=== PATIENT | male | born 1960 | race Caucasian/White ===

== ENCOUNTER → 2016-07-18 | Outpatient (CLI) | payer BC ==
[~2016-07-18] MED LIST: ASPI-1158 PO; COR3 PO; CYAN10009 PO; FERR-63 PO; LOSARTAN PO; PRAS10TA6 PO; ROSU40TA PO; VITAMIN E PO
[2016-07-18 07:37] LABS: CLARITY URINE CLEAR (CLEAR); COLOR URINE YELLOW (YELLOW); GLUCOSE URINE NEGATIVE (NEGATIVE); KETONES URINE NEGATIVE (NEGATIVE); LEUKOCYTE ESTERASE URINE NEGATIVE (NEGATIVE); NITRITE URINE NEGATIVE (NEGATIVE); OCCULT BLOOD URINE NEGATIVE (NEGATIVE); PH URINE 5.5 (4.5-8.0); PROTEIN URINE NEGATIVE (NEGATIVE); SPECIFIC GRAVITY URINE 1.016 (1.005-1.030); UROBILINOGEN URINE 0.2 E.U./dL (0.2-1.0)
[2016-07-18 08:06] LABS: BASOPHILS % 0.7 % (0.0-2.0); EOSINOPHILS % 1.8 % (0.0-5.0); HEMOGLOBIN. 13.5 g/dL (14.0-18.0); LYMPHOCYTES % 36.2 % (20.0-50.0); MEAN CORPUSCULAR HEMOGLOBIN 31.4 pg (28.0-32.0); MEAN CORPUSCULAR VOLUME 90.6 fL (80.0-94.0); MEAN PLATELET VOLUME 9.3 fl (7.4-10.4); MONOCYTES % 8.4 % (2.0-8.0); NEUTROPHILS % 52.9 % (40.0-76.0); PLATELET 224 x1000/uL (130-400); RED BLOOD CELL COUNT 4.31 mill/uL (4.7-6.1); RED CELL DISTRIBUTION WIDTH 12.8 % (11.6-14.6)
[2016-07-18 09:37] LABS: CARBON DIOXIDE 26 mEq/L (21-32); CHLORIDE 106 mEq/L (98-107); T4 FREE 1.08 ng/dL (0.76-1.46)
[2016-07-18 09:42] LABS: HDL CHOLESTEROL 49 mg/dL (40-59); LDL CHOLESTEROL 76 mg/dL (5-100)
[2016-07-19 13:11] LABS: *CREATININE RANDOM URINE 96.2 mg/dL (Not Estab.); MICROALBUMIN RANDOM URINE <3.0 ug/mL (Not Estab.); MICROALBUMIN/CREATININE RATIO <3.1 mg/g creat (0.0-30.0)
== END | disposition home or self-care (01) ==
LOC: LAB 07:03
PROVIDERS: ATTEND Internal Medicine Endocrinology, Diabetes & Metabolism
DX: I10 Essential (primary) hypertension (principal); F32.9 Major depressive disorder, single episode, unspecified; E55.9 Vitamin D deficiency, unspecified; E78.5 Hyperlipidemia, unspecified
CPT/HCPCS: 36415; 80053; 80061; 81003; 82043; 82306; 82570; 83036; 84439; 84443; 84550; 85025; 87086

== ENCOUNTER 2016-09-06 13:36 | Emergency (ER) | payer BC ==
[~2016-09-06] VITALS: Ht 162.6 cm; Wt 77.0 kg
[2016-09-06] MEDS ORDERED: METHYLPREDNISOLONE SOD SUCC 125 MG/2 ML VIAL IV ONE (14:15)
[2016-09-06] MEDS ORDERED: DIPHENHYDRAMINE 50MG/ML VIAL IV ONE (14:15)
[2016-09-06] MEDS ORDERED: FAMOTIDINE 20MG/2ML VIAL IV ONE (14:15)
[2016-09-06 14:32] LABS: BASOPHILS % 0.1 % (0.0-2.0); EOSINOPHILS % 0.8 % (0.0-5.0); HEMATOCRIT. 37.6 % (42.0-52.0); HEMOGLOBIN. 13.5 g/dL (14.0-18.0); LYMPHOCYTES % 14.9 % (20.0-50.0); MEAN CORPUSCULAR HEMOGLOBIN 31.7 pg (28.0-32.0); MEAN CORPUSCULAR VOLUME 88.2 fL (80.0-94.0); MEAN PLATELET VOLUME 8.7 fl (7.4-10.4); MONOCYTES % 5.6 % (2.0-8.0); NEUTROPHILS % 78.6 % (40.0-76.0); PLATELET 197 x1000/uL (130-400); RED BLOOD CELL COUNT 4.27 mill/uL (4.7-6.1); RED CELL DISTRIBUTION WIDTH 12.6 % (11.6-14.6)
[2016-09-06 14:41] LABS: PARTIAL THROMBOPLASTIN TIME 25.4 sec (24.0-34.0); PROTHROMBIN TIME 10.6 sec
[2016-09-06 14:49] LABS: CARBON DIOXIDE 26 mEq/L (21-32); CHLORIDE 104 mEq/L (98-107); CREATINE KINASE 262 IU/L (39-308); TROPONIN I < 0.02 ng/mL (0.00-0.04)
[2016-09-06 15:52] LABS: CLARITY URINE CLEAR (CLEAR); COLOR URINE YELLOW (YELLOW); GLUCOSE URINE NEGATIVE (NEGATIVE); KETONES URINE NEGATIVE (NEGATIVE); LEUKOCYTE ESTERASE URINE NEGATIVE (NEGATIVE); NITRITE URINE NEGATIVE (NEGATIVE); OCCULT BLOOD URINE NEGATIVE (NEGATIVE); PROTEIN URINE NEGATIVE (NEGATIVE); SPECIFIC GRAVITY URINE 1.011 (1.005-1.030)
[2016-09-06 16:09] VITALS: BP 138/74
== END 2016-09-06 16:13 | disposition home or self-care (01) ==
LOC: ER 13:36
DX: T78.40XA Allergy, unspecified, initial encounter (principal); L50.0 Allergic urticaria; M79.89 Other specified soft tissue disorders; I25.10 Atherosclerotic heart disease of native coronary artery without angina pectoris; I10 Essential (primary) hypertension; E78.00 Pure hypercholesterolemia, unspecified; I25.2 Old myocardial infarction; Z79.82 Long term (current) use of aspirin; Z87.891 Personal history of nicotine dependence; Z95.2 Presence of prosthetic heart valve; Z91.040 Latex allergy status
CPT/HCPCS: 36415; 80053; 81003; 82550; 83880; 84484; 85025; 85610; 85730; 93005; 96374; 96375; 99285; J1200; J2930; J3490

== ENCOUNTER → 2016-09-16 | Outpatient (CLI) | payer BC | END | disposition home or self-care (01) | LOC: US 08:27 | PROVIDERS: ATTEND Internal Medicine Endocrinology, Diabetes & Metabolism | DX: M79.601 Pain in right arm (principal); R60.9 Edema, unspecified | CPT/HCPCS: 76881 ==

== ENCOUNTER → 2016-10-15 | Outpatient (CLI) | payer BC | END | disposition home or self-care (01) | LOC: MRI 07:49 | PROVIDERS: ATTEND Internal Medicine | DX: M25.521 Pain in right elbow (principal) | CPT/HCPCS: 73220 ==

== ENCOUNTER → 2017-04-04 | Outpatient (CLI) | payer BC | END | disposition home or self-care (01) | LOC: RAD 17:27 | PROVIDERS: ATTEND Internal Medicine Endocrinology, Diabetes & Metabolism | DX: J40 Bronchitis, not specified as acute or chronic (principal) | CPT/HCPCS: 71046 ==

== ENCOUNTER → 2017-07-29 | Outpatient (CLI) | payer BC ==
[2017-07-29 08:26] LABS: BASOPHILS % 0.9 % (0.0-2.0); EOSINOPHILS % 2.5 % (0.0-5.0); HEMATOCRIT. 40.2 % (42.0-52.0); HEMOGLOBIN. 14.1 g/dL (14.0-18.0); LYMPHOCYTES % 35.8 % (20.0-50.0); MEAN CORPUSCULAR HEMOGLOBIN 31.6 pg (28.0-32.0); MEAN CORPUSCULAR VOLUME 89.8 fL (80.0-94.0); MEAN PLATELET VOLUME 8.7 fl (7.4-10.4); MONOCYTES % 7.7 % (2.0-8.0); NEUTROPHILS % 53.1 % (40.0-76.0); PLATELET 250 x1000/uL (130-400); RED BLOOD CELL COUNT 4.47 mill/uL (4.7-6.1); RED CELL DISTRIBUTION WIDTH 12.9 % (11.6-14.6)
[2017-07-29 08:39] LABS: CHLORIDE 107 mEq/L (98-107)
[2017-07-29 08:49] LABS: HDL CHOLESTEROL 51 mg/dL (40-59); T4 FREE 1.02 ng/dL (0.76-1.46)
[2017-07-29 09:00] LABS: LDL CHOLESTEROL 83 mg/dL (5-100)
== END | disposition home or self-care (01) ==
LOC: LAB 07:48
PROVIDERS: ATTEND Internal Medicine
DX: M79.605 Pain in left leg (principal); E78.00 Pure hypercholesterolemia, unspecified; R73.9 Hyperglycemia, unspecified; F41.9 Anxiety disorder, unspecified
CPT/HCPCS: 36415; 80053; 80061; 83036; 84439; 84443; 85025; 93971

== ENCOUNTER → 2017-08-12 | Outpatient (CLI) | payer BC | END | disposition home or self-care (01) | LOC: MRI 07:13 | PROVIDERS: ATTEND Internal Medicine | DX: M25.562 Pain in left knee (principal) | CPT/HCPCS: 73721 ==

== ENCOUNTER → 2017-08-29 | Outpatient (CLI) | payer BC | END | disposition home or self-care (01) | LOC: MRI 07:34 | PROVIDERS: ATTEND Psychiatry & Neurology Neurology | DX: M48.061 Spinal stenosis, lumbar region without neurogenic claudication (principal); G95.29 Other cord compression | CPT/HCPCS: 72148 ==

== ENCOUNTER → 2017-10-02 | Outpatient (CLI) | payer BC ==
[~2017-10-02] MED LIST changes: +REGADENOSON 0.4 MG/5 ML IV ONE
== END | disposition home or self-care (01) ==
LOC: NM 07:25
PROVIDERS: ATTEND Specialist
DX: I10 Essential (primary) hypertension (principal); I25.118 Atherosclerotic heart disease of native coronary artery with other forms of angina pectoris; E78.2 Mixed hyperlipidemia; J45.909 Unspecified asthma, uncomplicated
CPT/HCPCS: 78452; 93017; 93306; A9500; J2785

== ENCOUNTER → 2017-11-21 | Outpatient (CLI) | payer BC ==
[~2017-11-21] MED LIST changes: -REGADENOSON 0.4 MG/5 ML IV ONE
[2017-11-21 08:08] LABS: BASOPHILS % 0.9 % (0.0-2.0); EOSINOPHILS % 2.3 % (0.0-5.0); HEMATOCRIT. 40.5 % (42.0-52.0); HEMOGLOBIN. 14.1 g/dL (14.0-18.0); LYMPHOCYTES % 38.6 % (20.0-50.0); MEAN CORPUSCULAR HEMOGLOBIN 31.5 pg (28.0-32.0); MEAN CORPUSCULAR VOLUME 90.6 fL (80.0-94.0); MEAN PLATELET VOLUME 8.9 fl (7.4-10.4); NEUTROPHILS % 50.2 % (40.0-76.0); PLATELET 216 x1000/uL (130-400); RED BLOOD CELL COUNT 4.47 mill/uL (4.7-6.1); RED CELL DISTRIBUTION WIDTH 13.1 % (11.6-14.6)
[2017-11-21 09:01] LABS: CHLORIDE 105 mEq/L (98-107)
[2017-11-21 09:19] LABS: HDL CHOLESTEROL 57 mg/dL (40-59); LDL CHOLESTEROL 82 mg/dL (5-100); T4 FREE 0.99 ng/dL (0.76-1.46)
[2017-11-22 08:15] LABS: PROLACTIN 15.8 ng/mL (4.0-15.2); VITAMIN D 25-OH 53.1 ng/mL (30.0-100.0)
== END | disposition home or self-care (01) ==
LOC: LAB 07:25
PROVIDERS: ATTEND Internal Medicine Endocrinology, Diabetes & Metabolism
DX: M17.12 Unilateral primary osteoarthritis, left knee (principal); R73.9 Hyperglycemia, unspecified; E66.9 Obesity, unspecified; Z79.899 Other long term (current) drug therapy
CPT/HCPCS: 36415; 80061; 82306; 83036; 84146; 84439; 84443; 84550

== ENCOUNTER → 2018-06-12 | Outpatient (CLI) | payer BC ==
[2018-06-12 07:56] LABS: CLARITY URINE CLEAR (CLEAR); COLOR URINE YELLOW (YELLOW); KETONES URINE NEGATIVE (NEGATIVE); LEUKOCYTE ESTERASE URINE NEGATIVE (NEGATIVE); NITRITE URINE NEGATIVE (NEGATIVE); OCCULT BLOOD URINE NEGATIVE (NEGATIVE); PROTEIN URINE NEGATIVE (NEGATIVE); SPECIFIC GRAVITY URINE 1.011 (1.005-1.030); UROBILINOGEN URINE 0.2 E.U./dL (0.2-1.0)
[2018-06-12 08:18] LABS: BASOPHILS % 0.6 % (0.0-2.0); EOSINOPHILS % 1.5 % (0.0-5.0); HEMOGLOBIN. 13.7 g/dL (14.0-18.0); LYMPHOCYTES % 43.6 % (20.0-50.0); MEAN CORPUSCULAR HEMOGLOBIN 31.4 pg (28.0-32.0); MEAN CORPUSCULAR VOLUME 89.7 fL (80.0-94.0); MEAN PLATELET VOLUME 8.8 fl (7.4-10.4); MONOCYTES % 7.5 % (2.0-8.0); NEUTROPHILS % 46.8 % (40.0-76.0); PLATELET 225 x1000/uL (130-400); RED BLOOD CELL COUNT 4.35 mill/uL (4.7-6.1); RED CELL DISTRIBUTION WIDTH 13.1 % (11.6-14.6)
[2018-06-12 08:54] LABS: T4 FREE 1.19 ng/dL (0.76-1.46)
== END | disposition home or self-care (01) ==
LOC: LAB 07:01
PROVIDERS: ATTEND Internal Medicine Endocrinology, Diabetes & Metabolism
DX: E55.9 Vitamin D deficiency, unspecified (principal); M17.12 Unilateral primary osteoarthritis, left knee; R82.90 Unspecified abnormal findings in urine; R73.9 Hyperglycemia, unspecified
CPT/HCPCS: 36415; 80061; 82306; 83036; 84145; 84439; 84443; 84550

== ENCOUNTER 2018-08-25 00:07 | Inpatient (IN) | payer BC ==
[~2018-08-25] VITALS: Ht 162.6 cm; Wt 83.2 kg
[2018-08-25] MEDS ORDERED: MORPHINE SULFATE 4 MG/ML CPJ (NOT FOR IM USE) IV STA (00:27)
[2018-08-25] MEDS ORDERED: ONDANSETRON HCL 4MG/2ML INJ IV STA (00:27)
[2018-08-25] MEDS ORDERED: ASPIRIN 81MG TABLET PO ONE (00:30)
[2018-08-25 01:03] LABS: BASOPHILS % 0.6 % (0.0-2.0); EOSINOPHILS % 2.5 % (0.0-5.0); HEMOGLOBIN. 13.7 g/dL (14.0-18.0); LYMPHOCYTES % 42.1 % (20.0-50.0); MEAN CORPUSCULAR HEMOGLOBIN 32.1 pg (28.0-32.0); MEAN CORPUSCULAR VOLUME 91.3 fL (80.0-94.0); MEAN PLATELET VOLUME 9.1 fl (7.4-10.4); MONOCYTES % 7.9 % (2.0-8.0); NEUTROPHILS % 46.9 % (40.0-76.0); PLATELET 210 x1000/uL (130-400); RED BLOOD CELL COUNT 4.28 mill/uL (4.7-6.1); RED CELL DISTRIBUTION WIDTH 12.8 % (11.6-14.6)
[2018-08-25 01:06] LABS: CHLORIDE 105 mEq/L (98-107)
[2018-08-25 01:08] LABS: PARTIAL THROMBOPLASTIN TIME 25.2 sec (23.4-31.0); PROTHROMBIN TIME 10.5 sec (9.6-11.0)
[2018-08-25 01:36] LABS: CLARITY URINE CLEAR (CLEAR); COLOR URINE YELLOW (YELLOW); KETONES URINE NEGATIVE (NEGATIVE); LEUKOCYTE ESTERASE URINE NEGATIVE (NEGATIVE); NITRITE URINE NEGATIVE (NEGATIVE); OCCULT BLOOD URINE NEGATIVE (NEGATIVE); PROTEIN URINE NEGATIVE (NEGATIVE); SPECIFIC GRAVITY URINE 1.003 (1.005-1.030); UROBILINOGEN URINE 0.2 E.U./dL (0.2-1.0)
[2018-08-25 02:35] VITALS: BP 132/80
[2018-08-25 03:17] VITALS: BP 132/80
[2018-08-25] MEDS ORDERED: ACETAMINOPHEN 325MG TABLET PO PRN (05:15)
[2018-08-25] MEDS ORDERED: MORPHINE SULFATE 2 MG/ML CPJ (NOT FOR IM USE) IV PRN (05:15)
[2018-08-25] MEDS ORDERED: NITROGLYCERIN 0.4MG TABLET SL SL PRN (05:15)
[2018-08-25 08:42] VITALS: BP 147/81
[2018-08-25 08:50] LABS: CREATINE KINASE 155 IU/L (39-308)
[2018-08-25 08:51] LABS: CREATINE KINASE MB FRACTION 1.1 ng/mL (0.5-3.6)
[2018-08-25] MEDS ORDERED: CLOPIDOGREL 75MG TABLET PO SCH (09:00)
[2018-08-25] MEDS ORDERED: CARVEDILOL 3.125 MG TABLET PO SCH (09:00)
[2018-08-25] MEDS ORDERED: VITAMIN E 1,000 UNIT CAPSULE PO SCH (09:00)
[2018-08-25] MEDS ORDERED: LOSARTAN POTASSIUM 25 MG TABLET PO SCH ×2 (09:00→12:00)
[2018-08-25] MEDS ORDERED: FERROUS SULFATE 325MG TABLET PO SCH (09:00)
[2018-08-25] MEDS ORDERED: ASPIRIN 81MG EC TABLET PO SCH (09:00)
[2018-08-25] MEDS ORDERED: ASCORBIC ACID 500 MG TABLET PO SCH (09:00)
[2018-08-25] MEDS ORDERED: CYANOCOBALAMIN 1000MCG TABLET PO SCH (09:00)
[2018-08-25 10:06] VITALS: BP 153/86
[2018-08-25] MEDS ORDERED: REGADENOSON 0.4 MG/5 ML IV ONE ×2 (11:45→13:24)
[2018-08-25 12:01] VITALS: BP 153/96
[2018-08-25 16:01] VITALS: BP 147/87
== END 2018-08-25 20:00 | disposition home or self-care (01) | DRG 303 ==
LOC: ER 00:07 → 3WST 01:24 → EDBEDREQTM 01:26 → EDBEDREQ 01:26 → ER 01:39 → ENRESERV 01:41
PROVIDERS: ADMIT Internal Medicine Endocrinology, Diabetes & Metabolism; ATTEND Internal Medicine Endocrinology, Diabetes & Metabolism
DX: I25.118 Atherosclerotic heart disease of native coronary artery with other forms of angina pectoris (principal); E22.1 Hyperprolactinemia; E23.0 Hypopituitarism; R07.89 Other chest pain; R73.9 Hyperglycemia, unspecified; E78.00 Pure hypercholesterolemia, unspecified; E78.5 Hyperlipidemia, unspecified; G89.29 Other chronic pain; I10 Essential (primary) hypertension; K80.20 Calculus of gallbladder without cholecystitis without obstruction; M17.0 Bilateral primary osteoarthritis of knee; S46.912A Strain of unspecified muscle, fascia and tendon at shoulder and upper arm level, left arm, initial encounter; X58.XXXA Exposure to other specified factors, initial encounter; M19.019 Primary osteoarthritis, unspecified shoulder; M47.812 Spondylosis without myelopathy or radiculopathy, cervical region; E66.9 Obesity, unspecified; M48.061 Spinal stenosis, lumbar region without neurogenic claudication; E79.0 Hyperuricemia without signs of inflammatory arthritis and tophaceous disease; M48.02 Spinal stenosis, cervical region; M48.07 Spinal stenosis, lumbosacral region; Z82.3 Family history of stroke; Z82.49 Family history of ischemic heart disease and other diseases of the circulatory system; Z83.3 Family history of diabetes mellitus; Z95.1 Presence of aortocoronary bypass graft; Z91.040 Latex allergy status; Z79.82 Long term (current) use of aspirin; Z79.899 Other long term (current) drug therapy; Z83.6 Family history of other diseases of the respiratory system; Z84.89 Family history of other specified conditions; Z68.31 Body mass index [BMI] 31.0-31.9, adult; Y93.89 Activity, other specified; Y92.89 Other specified places as the place of occurrence of the external cause; Y99.8 Other external cause status; I25.2 Old myocardial infarction
CPT/HCPCS: 36415; 71045; 78452; 82550; 82553; 83036; 83880; 84484; 93017; A9500; J2270; J2405; J2785

== ENCOUNTER → 2019-02-12 | Outpatient (CLI) | payer BC ==
[~2019-02-12] MED LIST changes: +CYAN-50 PO; -CYAN10009 PO; -PRAS10TA6 PO; -ROSU40TA PO
== END | disposition home or self-care (01) ==
LOC: RAD 07:36
PROVIDERS: ATTEND Internal Medicine Endocrinology, Diabetes & Metabolism
DX: M25.561 Pain in right knee (principal); M25.562 Pain in left knee
CPT/HCPCS: 73565

== ENCOUNTER → 2019-04-21 | Outpatient (CLI) | payer BC ==
[2019-04-21 08:05] LABS: BASOPHILS % 0.7 % (0.0-2.0); EOSINOPHILS % 2.1 % (0.0-5.0); HEMATOCRIT. 42.4 % (42.0-52.0); HEMOGLOBIN. 14.7 g/dL (14.0-18.0); LYMPHOCYTES % 38.7 % (20.0-50.0); MEAN CORPUSCULAR HEMOGLOBIN 31.5 pg (28.0-32.0); MEAN CORPUSCULAR VOLUME 90.7 fL (80.0-94.0); MEAN PLATELET VOLUME 9.9 fl (7.4-10.4); MONOCYTES % 7.5 % (2.0-8.0); PLATELET 197 x1000/uL (130-400); RED BLOOD CELL COUNT 4.67 mill/uL (4.7-6.1); RED CELL DISTRIBUTION WIDTH 12.7 % (11.6-14.6)
[2019-04-21 08:19] LABS: CHLORIDE 107 mEq/L (98-107)
[2019-04-21 08:28] LABS: HDL CHOLESTEROL 57 mg/dL (40-59); LDL CHOLESTEROL 75 mg/dL (5-100); T4 FREE 0.98 ng/dL (0.76-1.46)
[2019-04-22 09:11] LABS: VITAMIN D 25-OH 58.3 ng/mL (30.0-100.0)
[2019-04-22 13:06] LABS: ANTI-NUCLEAR ANTIBODIES DIRECT Negative (Negative)
== END | disposition home or self-care (01) ==
LOC: LAB 07:07
PROVIDERS: ATTEND Internal Medicine Endocrinology, Diabetes & Metabolism
DX: Z12.5 Encounter for screening for malignant neoplasm of prostate (principal); R73.9 Hyperglycemia, unspecified; M25.562 Pain in left knee
CPT/HCPCS: 36415; 80053; 80061; 82306; 83036; 84153; 84439; 84443; 85025; 85651; 86038; 86430; G0103

== ENCOUNTER → 2019-05-05 | Outpatient (CLI) | payer BC | END | disposition home or self-care (01) | LOC: CARD 08:35 | PROVIDERS: ATTEND Specialist | DX: I51.7 Cardiomegaly (principal); R06.02 Shortness of breath | CPT/HCPCS: 93306 ==

== ENCOUNTER → 2019-08-11 | Outpatient (CLI) | payer BC | END | disposition home or self-care (01) | LOC: MRI 08:13 | PROVIDERS: ATTEND Neurological Surgery | DX: M51.27 Other intervertebral disc displacement, lumbosacral region (principal); M48.061 Spinal stenosis, lumbar region without neurogenic claudication; M51.37 Other intervertebral disc degeneration, lumbosacral region; M48.07 Spinal stenosis, lumbosacral region; M47.815 Spondylosis without myelopathy or radiculopathy, thoracolumbar region; M47.812 Spondylosis without myelopathy or radiculopathy, cervical region; M48.02 Spinal stenosis, cervical region; M50.221 Other cervical disc displacement at C4-C5 level; M50.222 Other cervical disc displacement at C5-C6 level | CPT/HCPCS: 72141; 72148 ==

== ENCOUNTER 2020-02-02 23:03 | Inpatient (IN) | payer BC ==
[~2020-02-02] VITALS: Ht 162.6 cm; Wt 78.0 kg
[2020-02-02 21:35] VITALS: BP 142/82
[2020-02-02] MEDS ORDERED: ALBUTEROL 6.7GM HFA INHALER ORI PRN (23:15)
[2020-02-02] MEDS ORDERED: ZOLPIDEM TARTRATE 5MG TABLET PO PRN (23:15)
[2020-02-02] MEDS ORDERED: CLONIDINE 0.1MG TABLET PO PRN (23:15)
[2020-02-02] MEDS ORDERED: GUAIFENESIN 200MG/10ML SUGAR FREE UDC PO PRN (23:15)
[2020-02-02] MEDS ORDERED: BENZONATATE 100MG CAPSULE PO PRN (23:15)
[2020-02-02] MEDS ORDERED: DIPHENHYDRAMINE 50MG/ML VIAL IV PRN (23:15)
[2020-02-02] MEDS ORDERED: ONDANSETRON HCL 4MG/2ML INJ IV PRN (23:15)
[2020-02-02] MEDS ORDERED: ACETAMINOPHEN 325MG TABLET PO PRN ×2 (23:15)
[2020-02-02] MEDS ORDERED: MAGNESIUM/ALUMINUM HYDROXIDE/SIMETHICONE 30ML UDC PO PRN (23:15)
[2020-02-02] MEDS ORDERED: CEFTRIAXONE 1 G PREMIX 50 ML IV SCH (23:30)
[2020-02-03] VITALS: BP 121/77
[2020-02-03] MEDS ORDERED: TRAMADOL 50MG TABLET PO PRN ×2 (00:45)
[2020-02-03] MEDS: TRAMADOL 50MG TABLET PO PRN (01:23)
[2020-02-03 04:00] VITALS: BP 143/84
[2020-02-03] MEDS ORDERED: AZITHROMYCIN 500 MG in DEXT 5% WATER 250 ML IV SCH (04:00)
[2020-02-03] MEDS: CEFTRIAXONE 1,000 MG in DEXTROSE 5% WATER 50 ML IV SCH (06:06)
[2020-02-03] MEDS: SODIUM CHLORIDE 0.9% INJ 3ML FLUSH IVF SCH ×3 (06:11→22:38)
[2020-02-03 07:15] LABS: BASOPHILS % 0.2 % (0.0-2.0); HEMATOCRIT. 38.1 % (42.0-52.0); MEAN CORPUSCULAR HEMOGLOBIN 31.2 pg (28.0-32.0); MEAN PLATELET VOLUME 9.5 fl (7.4-10.4); MONOCYTES % 9.1 % (2.0-8.0); NEUTROPHILS % 67.7 % (40.0-76.0); PLATELET 279 x1000/uL (130-400); RED BLOOD CELL COUNT 4.19 mill/uL (4.7-6.1); RED CELL DISTRIBUTION WIDTH 12.7 % (11.6-14.6)
[2020-02-03 07:31] LABS: CHLORIDE 102 mEq/L (98-107)
[2020-02-03 07:39] LABS: PHOSPHORUS 3.1 mg/dL (2.5-4.9)
[2020-02-03 08:00] VITALS: BP 107/62
[2020-02-03] MEDS ORDERED: CYANOCOBALAMIN 1000MCG TABLET PO SCH (08:10)
[2020-02-03] MEDS ORDERED: CHOLECALCIFEROL (D3) 1000 UNIT TABLET PO SCH (09:00)
[2020-02-03] MEDS: LOSARTAN POTASSIUM 25 MG TABLET PO SCH ×2 (09:00→22:38)
[2020-02-03] MEDS ORDERED: CARVEDILOL 3.125 MG TABLET PO SCH (09:00)
[2020-02-03] MEDS ORDERED: LOSARTAN POTASSIUM 25 MG TABLET PO SCH (09:00)
[2020-02-03] MEDS ORDERED: ASCORBIC ACID 500 MG TABLET PO SCH (09:00)
[2020-02-03] MEDS ORDERED: METOPROLOL TARTRATE 25MG TABLET PO SCH ×2 (09:00)
[2020-02-03] MEDS ORDERED: CLOPIDOGREL 75MG TABLET PO SCH (09:00)
[2020-02-03] MEDS: METOPROLOL TARTRATE 25MG TABLET PO SCH ×2 (09:00→22:37)
[2020-02-03] MEDS: ASCORBIC ACID 500 MG TABLET PO SCH (09:10)
[2020-02-03] MEDS: ASPIRIN 81MG EC TABLET PO SCH (09:11)
[2020-02-03] MEDS: CYANOCOBALAMIN 1000MCG TABLET PO SCH (09:11)
[2020-02-03] MEDS: GUAIFENESIN 600MG ER TABLET PO SCH ×2 (09:11→21:00)
[2020-02-03] MEDS: CLOPIDOGREL 75MG TABLET PO SCH (09:12)
[2020-02-03] MEDS: DEXAMETHASONE 10 MG/ML VIAL IV SCH (09:12)
[2020-02-03] MEDS: ENOXAPARIN 40MG/0.4ML SYR SUBCUT SCH (09:29)
[2020-02-03] MEDS: FAMOTIDINE 20MG TABLET PO SCH ×2 (09:29→22:37)
[2020-02-03 12:00] VITALS: BP 108/63
[2020-02-03 16:00] VITALS: BP 112/80
[2020-02-03] MEDS ORDERED: ERGOCALCIFEROL 50000UNITS CAPSULE PO SCH (16:00)
[2020-02-03] MEDS: ATORVASTATIN CALCIUM 20MG TABLET PO SCH (22:37)
[2020-02-03] MEDS: DOXYCYCLINE HYCLATE 100MG CAPSULE PO SCH (22:37)
[2020-02-04] VITALS: BP 116/60
[2020-02-04 04:00] VITALS: BP 107/71
[2020-02-04] MEDS: SODIUM CHLORIDE 0.9% INJ 3ML FLUSH IVF SCH ×3 (06:00→20:57)
[2020-02-04 07:45] LABS: BASOPHILS % 0.2 % (0.0-2.0); HEMATOCRIT. 38.4 % (42.0-52.0); HEMOGLOBIN. 13.6 g/dL (14.0-18.0); LYMPHOCYTES % 17.6 % (20.0-50.0); MEAN CORPUSCULAR VOLUME 90.7 fL (80.0-94.0); MEAN PLATELET VOLUME 9.7 fl (7.4-10.4); NEUTROPHILS % 72.2 % (40.0-76.0); PLATELET 341 x1000/uL (130-400); RED BLOOD CELL COUNT 4.23 mill/uL (4.7-6.1); RED CELL DISTRIBUTION WIDTH 12.7 % (11.6-14.6)
[2020-02-04 07:59] LABS: CHLORIDE 103 mEq/L (98-107)
[2020-02-04 08:00] VITALS: BP 104/45
[2020-02-04 08:07] LABS: C REACTIVE PROTEIN QUANT 9.1 mg/L (0.0-3.0)
[2020-02-04] MEDS: GUAIFENESIN 600MG ER TABLET PO SCH ×2 (09:00→20:57)
[2020-02-04] MEDS: DOXYCYCLINE HYCLATE 100MG CAPSULE PO SCH ×2 (09:02→20:57)
[2020-02-04] MEDS: CLOPIDOGREL 75MG TABLET PO SCH (09:02)
[2020-02-04] MEDS: FAMOTIDINE 20MG TABLET PO SCH ×2 (09:02→20:57)
[2020-02-04] MEDS: METOPROLOL TARTRATE 25MG TABLET PO SCH ×2 (09:02→09:24)
[2020-02-04] MEDS: LOSARTAN POTASSIUM 25 MG TABLET PO SCH ×2 (09:02→09:29)
[2020-02-04] MEDS: CYANOCOBALAMIN 1000MCG TABLET PO SCH (09:03)
[2020-02-04] MEDS: ASPIRIN 81MG EC TABLET PO SCH (09:03)
[2020-02-04] MEDS: DEXAMETHASONE 10 MG/ML VIAL IV SCH (09:03)
[2020-02-04] MEDS: ENOXAPARIN 40MG/0.4ML SYR SUBCUT SCH (09:04)
[2020-02-04] MEDS: CEFTRIAXONE 1,000 MG in DEXTROSE 5% WATER 50 ML IV SCH (09:08)
[2020-02-04 12:00] VITALS: BP 121/76
[2020-02-04 16:00] VITALS: BP 107/58
[2020-02-04 20:00] VITALS: BP 116/61
[2020-02-04] MEDS: ATORVASTATIN CALCIUM 20MG TABLET PO SCH (20:57)
[2020-02-04] MEDS: TRAMADOL 50MG TABLET PO PRN (21:07)
[2020-02-05] VITALS: BP 105/67
[2020-02-05 04:00] VITALS: BP 123/59
[2020-02-05] MEDS: SODIUM CHLORIDE 0.9% INJ 3ML FLUSH IVF SCH ×3 (05:34→21:18)
[2020-02-05 08:00] VITALS: BP 111/55
[2020-02-05] MEDS: DEXAMETHASONE 10 MG/ML VIAL IV SCH (09:10)
[2020-02-05] MEDS: ENOXAPARIN 40MG/0.4ML SYR SUBCUT SCH (09:10)
[2020-02-05] MEDS: DOCUSATE SODIUM 100MG CAPSULE PO SCH (09:10)
[2020-02-05] MEDS: ASPIRIN 81MG EC TABLET PO SCH (09:11)
[2020-02-05] MEDS: DOXYCYCLINE HYCLATE 100MG CAPSULE PO SCH ×2 (09:11→21:17)
[2020-02-05] MEDS: METOPROLOL TARTRATE 25MG TABLET PO SCH ×3 (09:11→21:18)
[2020-02-05] MEDS: GUAIFENESIN 600MG ER TABLET PO SCH ×2 (09:11→21:17)
[2020-02-05] MEDS: CLOPIDOGREL 75MG TABLET PO SCH (09:11)
[2020-02-05] MEDS: ASCORBIC ACID 500 MG TABLET PO SCH ×2 (09:11→09:12)
[2020-02-05] MEDS: FAMOTIDINE 20MG TABLET PO SCH ×2 (09:11→21:17)
[2020-02-05] MEDS: CYANOCOBALAMIN 1000MCG TABLET PO SCH (09:11)
[2020-02-05] MEDS: LOSARTAN POTASSIUM 25 MG TABLET PO SCH ×3 (09:11→21:17)
[2020-02-05 12:00] VITALS: BP 114/64
[2020-02-05 20:00] VITALS: BP 101/52
[2020-02-05] MEDS: ATORVASTATIN CALCIUM 20MG TABLET PO SCH (21:17)
[2020-02-06] VITALS: BP 130/65
[2020-02-06] MEDS: SODIUM CHLORIDE 0.9% INJ 3ML FLUSH IVF SCH ×3 (06:13→21:58)
[2020-02-06 08:00] VITALS: BP 112/61
[2020-02-06] MEDS: ASPIRIN 81MG EC TABLET PO SCH (09:00)
[2020-02-06 12:00] VITALS: BP 135/80
[2020-02-06] MEDS: DEXAMETHASONE 10 MG/ML VIAL IV SCH (12:02)
[2020-02-06] MEDS: DOXYCYCLINE HYCLATE 100MG CAPSULE PO SCH ×2 (12:03→20:26)
[2020-02-06] MEDS: GUAIFENESIN 600MG ER TABLET PO SCH ×2 (12:03→20:25)
[2020-02-06] MEDS: CYANOCOBALAMIN 1000MCG TABLET PO SCH (12:04)
[2020-02-06] MEDS: METOPROLOL TARTRATE 25MG TABLET PO SCH ×2 (12:04→21:00)
[2020-02-06] MEDS: ASCORBIC ACID 500 MG TABLET PO SCH (12:04)
[2020-02-06] MEDS: DOCUSATE SODIUM 100MG CAPSULE PO SCH (12:04)
[2020-02-06] MEDS: LOSARTAN POTASSIUM 25 MG TABLET PO SCH ×2 (12:04→21:57)
[2020-02-06] MEDS: CLOPIDOGREL 75MG TABLET PO SCH (12:04)
[2020-02-06] MEDS: FAMOTIDINE 20MG TABLET PO SCH ×2 (12:05→20:26)
[2020-02-06] MEDS: ENOXAPARIN 40MG/0.4ML SYR SUBCUT SCH (12:05)
[2020-02-06 15:37] LABS: BG BASE EXCESS -0.9 mmol/L (-2.0-2.0); BG CARBOXYHEMOGLOBIN 0.3 % (0.5-1.5); BG HCO3 ACT 22.8 mmol/L (22.0-26.0); BG METHEMOGLOBIN 0.3 % (0.0-1.5); BG OXYGEN SATURATION 90.9 % (92.0-98.5); BG OXYHEMOGLOBIN 90.4 % (94.0-97.0); BG PH 7.431 (7.350-7.450); BG PO2 58.3 mmHg (75.0-100.0); BG SAMPLE SITE RIGHT RADIAL; BG TOTAL HEMOGLOBIN 14.2 g/dL (12.0-18.0); BG VENT MODE ROOM AIR
[2020-02-06 20:00] VITALS: BP 111/67
[2020-02-06] MEDS: ATORVASTATIN CALCIUM 20MG TABLET PO SCH (20:25)
[2020-02-06] MEDS: TRAMADOL 50MG TABLET PO PRN (21:57)
[2020-02-07] VITALS: BP 101/63
[2020-02-07 04:00] VITALS: BP 101/55
[2020-02-07] MEDS: SODIUM CHLORIDE 0.9% INJ 3ML FLUSH IVF SCH ×2 (05:28→14:00)
[2020-02-07 08:00] VITALS: BP 120/62
[2020-02-07] MEDS: ENOXAPARIN 40MG/0.4ML SYR SUBCUT SCH (08:52)
[2020-02-07] MEDS: CLOPIDOGREL 75MG TABLET PO SCH (08:53)
[2020-02-07] MEDS: DOCUSATE SODIUM 100MG CAPSULE PO SCH (08:53)
[2020-02-07] MEDS: ASCORBIC ACID 500 MG TABLET PO SCH (08:53)
[2020-02-07] MEDS: FAMOTIDINE 20MG TABLET PO SCH (08:53)
[2020-02-07] MEDS: LOSARTAN POTASSIUM 25 MG TABLET PO SCH (08:53)
[2020-02-07] MEDS: METOPROLOL TARTRATE 25MG TABLET PO SCH (08:53)
[2020-02-07] MEDS: CYANOCOBALAMIN 1000MCG TABLET PO SCH (08:53)
[2020-02-07] MEDS: DEXAMETHASONE 10 MG/ML VIAL IV SCH (08:54)
[2020-02-07] MEDS: ASPIRIN 81MG EC TABLET PO SCH (08:54)
[2020-02-07] MEDS: DOXYCYCLINE HYCLATE 100MG CAPSULE PO SCH (08:54)
[2020-02-07] MEDS: GUAIFENESIN 600MG ER TABLET PO SCH (08:54)
[2020-02-07 12:00] VITALS: BP_SYST 110; BP_SYST 141; BP_DIAS 63; BP_DIAS 79
[2020-02-07 16:00] VITALS: BP 112/57
[2020-02-07 16:57] VITALS: BP 112/57
== END 2020-02-07 18:00 | disposition home or self-care (01) | DRG 871 ==
LOC: 7WST 23:03
PROVIDERS: ADMIT Internal Medicine; ATTEND Internal Medicine
DX: A41.89 Other specified sepsis (principal); U07.1 COVID-19; J96.01 Acute respiratory failure with hypoxia; J12.89 Other viral pneumonia; D68.69 Other thrombophilia; R65.20 Severe sepsis without septic shock; E78.00 Pure hypercholesterolemia, unspecified; E78.5 Hyperlipidemia, unspecified; I25.10 Atherosclerotic heart disease of native coronary artery without angina pectoris; I10 Essential (primary) hypertension; B97.89 Other viral agents as the cause of diseases classified elsewhere; M19.90 Unspecified osteoarthritis, unspecified site; R74.01 Elevation of levels of liver transaminase levels; Z95.1 Presence of aortocoronary bypass graft; Z79.899 Other long term (current) drug therapy
CPT/HCPCS: 36415; 36600; 71045; 80048; 80053; 80076; 82375; 82728; 82805; 83615; 83735; 83880; 84100; 84145; 85025; 85379; 86140; J0456; J0696; J1100; J1650; J7060

== ENCOUNTER → 2020-02-25 | Outpatient (CLI) | payer BC ==
[~2020-02-25] MED LIST changes: -ASPI-1158 PO; +ASPI-1406 PO
== END | disposition home or self-care (01) ==
LOC: LAB 14:16
PROVIDERS: ATTEND Internal Medicine Endocrinology, Diabetes & Metabolism
DX: R05 Cough (principal)
CPT/HCPCS: 71046

== ENCOUNTER → 2020-06-29 | Outpatient (CLI) | payer BC ==
[~2020-06-29] MED LIST changes: +IOHEXOL-350 100 ML BOTTLE ONE
== END | disposition home or self-care (01) ==
LOC: CARD 08:30
PROVIDERS: ATTEND Specialist
DX: I71.2 Thoracic aortic aneurysm, without rupture (principal); I70.8 Atherosclerosis of other arteries; I65.21 Occlusion and stenosis of right carotid artery; I25.10 Atherosclerotic heart disease of native coronary artery without angina pectoris
CPT/HCPCS: 70498; 87426; 93306; Q9967

== ENCOUNTER → 2020-10-19 | Outpatient (CLI) | payer BC ==
[~2020-10-19] MED LIST changes: -IOHEXOL-350 100 ML BOTTLE ONE
== END | disposition home or self-care (01) ==
LOC: MRI 07:49
PROVIDERS: ATTEND Neurological Surgery
DX: M47.812 Spondylosis without myelopathy or radiculopathy, cervical region (principal); M50.23 Other cervical disc displacement, cervicothoracic region
CPT/HCPCS: 72141

== ENCOUNTER → 2020-10-20 | Outpatient (CLI) | payer BC | END | disposition home or self-care (01) | LOC: NM 07:51 | PROVIDERS: ATTEND Specialist | DX: I25.10 Atherosclerotic heart disease of native coronary artery without angina pectoris (principal); Z79.82 Long term (current) use of aspirin; Z79.899 Other long term (current) drug therapy; Z98.890 Other specified postprocedural states; Z82.49 Family history of ischemic heart disease and other diseases of the circulatory system; Z83.3 Family history of diabetes mellitus; Z91.040 Latex allergy status | CPT/HCPCS: 78452; 93017; A9500; C1893; Z7610 ==

== ENCOUNTER → 2021-04-06 | Outpatient (CLI) | payer BC ==
[2021-04-06 08:35] LABS: BASOPHILS % 0.5 % (0.0-2.0); EOSINOPHILS % 2.8 % (0.0-5.0); HEMATOCRIT. 41.7 % (42.0-52.0); HEMOGLOBIN. 14.9 g/dL (14.0-18.0); LYMPHOCYTES % 44.9 % (20.0-50.0); MEAN CORPUSCULAR HEMOGLOBIN 32.3 pg (28.0-32.0); MEAN CORPUSCULAR VOLUME 90.5 fL (80.0-94.0); MONOCYTES % 8.1 % (2.0-8.0); NEUTROPHILS % 43.7 % (40.0-76.0); PLATELET 207 x1000/uL (130-400); RED BLOOD CELL COUNT 4.61 mill/uL (4.7-6.1); RED CELL DISTRIBUTION WIDTH 13.2 % (11.6-14.6)
[2021-04-06 12:18] LABS: VITAMIN B12 SERUM 1987 pg/mL (211-911)
[2021-04-06 14:45] LABS: CHLORIDE 108 mEq/L (98-107)
[2021-04-06 14:52] LABS: LDL CHOLESTEROL 81 mg/dL (5-100)
[2021-04-06 14:53] LABS: HDL CHOLESTEROL 57 mg/dL (40-59); T4 FREE 1.09 ng/dL (0.76-1.46)
[2021-04-07 09:06] LABS: ANTI-NUCLEAR ANTIBODIES DIRECT Negative (Negative); PROLACTIN 15.8 ng/mL (4.0-15.2); VITAMIN D 25-OH 55.8 ng/mL (30.0-100.0)
[2021-04-09 06:19] LABS: TESTOSTERONE FREE 4.7 pg/mL (6.6-18.1)
[2021-04-13 13:07] LABS: METHYLMALONIC ACID 117 nmol/L (0-378)
== END | disposition home or self-care (01) ==
LOC: LAB 07:33
PROVIDERS: ATTEND Internal Medicine Endocrinology, Diabetes & Metabolism
DX: E78.5 Hyperlipidemia, unspecified (principal); R73.9 Hyperglycemia, unspecified; R37 Sexual dysfunction, unspecified; E55.9 Vitamin D deficiency, unspecified; M13.862 Other specified arthritis, left knee
CPT/HCPCS: 36415; 80053; 80061; 82306; 82607; 83036; 83921; 84146; 84402; 84403; 84439; 84443; 85025; 86038; 86430

== ENCOUNTER → 2021-04-11 | Outpatient (CLI) | payer BC | END | disposition home or self-care (01) | LOC: US 07:46 | PROVIDERS: ATTEND Internal Medicine Endocrinology, Diabetes & Metabolism | DX: K80.80 Other cholelithiasis without obstruction (principal); K76.0 Fatty (change of) liver, not elsewhere classified | CPT/HCPCS: 76700 ==

== ENCOUNTER → 2021-04-27 | Outpatient (CLI) | payer BC | END | disposition home or self-care (01) | LOC: CARD 09:21 | PROVIDERS: ATTEND Internal Medicine Endocrinology, Diabetes & Metabolism | DX: I25.10 Atherosclerotic heart disease of native coronary artery without angina pectoris (principal); I10 Essential (primary) hypertension; E78.5 Hyperlipidemia, unspecified; Z95.1 Presence of aortocoronary bypass graft | CPT/HCPCS: 93306 ==

== ENCOUNTER → 2021-10-17 | Outpatient (CLI) | payer BC | END | disposition home or self-care (01) | LOC: MRI 07:38 | PROVIDERS: ATTEND Internal Medicine | DX: S56.911A Strain of unspecified muscles, fascia and tendons at forearm level, right arm, initial encounter (principal); M79.631 Pain in right forearm; X58.XXXA Exposure to other specified factors, initial encounter; Y93.89 Activity, other specified; Y92.89 Other specified places as the place of occurrence of the external cause; Y99.8 Other external cause status | CPT/HCPCS: 73220; 73221 ==

== ENCOUNTER → 2021-12-28 | Outpatient (CLI) | payer BC ==
[2021-12-28 07:38] LABS: BASOPHILS % 0.5 % (0.0-2.0); EOSINOPHILS % 2.3 % (0.0-5.0); HEMATOCRIT. 40.3 % (42.0-52.0); HEMOGLOBIN. 14.1 g/dL (14.0-18.0); LYMPHOCYTES % 42.6 % (20.0-50.0); MEAN CORPUSCULAR HEMOGLOBIN 32.2 pg (28.0-32.0); MEAN CORPUSCULAR VOLUME 91.7 fL (80.0-94.0); MEAN PLATELET VOLUME 9.1 fl (7.4-10.4); MONOCYTES % 7.9 % (2.0-8.0); NEUTROPHILS % 46.7 % (40.0-76.0); PLATELET 205 x1000/uL (130-400); RED BLOOD CELL COUNT 4.39 mill/uL (4.7-6.1); RED CELL DISTRIBUTION WIDTH 12.9 % (11.6-14.6)
[2021-12-28 08:34] LABS: CHLORIDE 107 mEq/L (98-107)
[2021-12-28 08:53] LABS: HDL CHOLESTEROL 54 mg/dL (40-59); LDL CHOLESTEROL 48 mg/dL (5-100)
[2021-12-28 09:36] LABS: VITAMIN B12 SERUM 1845 pg/mL (211-911)
[2021-12-28 11:13] LABS: PROSTRATE SPECIFIC AG TOTAL 0.28 ng/mL (0.0-4.0)
[2021-12-29 09:11] LABS: VITAMIN D 25-OH 37.6 ng/mL (30.0-100.0)
[2021-12-31 13:07] LABS: ANTI-NUCLEAR ANTIBODIES DIRECT Negative (Negative)
[2022-01-01 04:10] LABS: METHYLMALONIC ACID 119 nmol/L (0-378)
== END | disposition home or self-care (01) ==
LOC: LAB 07:13
PROVIDERS: ATTEND Internal Medicine Endocrinology, Diabetes & Metabolism
DX: E55.9 Vitamin D deficiency, unspecified (principal); R73.9 Hyperglycemia, unspecified; M13.861 Other specified arthritis, right knee; E78.5 Hyperlipidemia, unspecified
CPT/HCPCS: 36415; 80053; 80061; 82306; 82607; 82746; 83036; 83921; 84153; 84403; 84439; 84443; 85025; 85651; 86038; 86430; G0103

== ENCOUNTER → 2022-03-28 | Day surgery (SDC) | payer BC | END | disposition home or self-care (01) | LOC: CARD 07:31 | PROVIDERS: ATTEND Specialist | DX: I25.10 Atherosclerotic heart disease of native coronary artery without angina pectoris (principal); I31.39 Other pericardial effusion (noninflammatory); Z79.82 Long term (current) use of aspirin; Z79.899 Other long term (current) drug therapy; Z82.49 Family history of ischemic heart disease and other diseases of the circulatory system; Z91.040 Latex allergy status | CPT/HCPCS: 93306 ==

== ENCOUNTER → 2022-05-09 | Outpatient (CLI) | payer BC ==
[2022-05-09 07:15] LABS: CHLORIDE 107 mEq/L (98-107)
[2022-05-09 07:17] LABS: BASOPHILS % 0.5 % (0.0-2.0); EOSINOPHILS % 2.6 % (0.0-5.0); HEMATOCRIT. 40.9 % (42.0-52.0); HEMOGLOBIN. 14.4 g/dL (14.0-18.0); LYMPHOCYTES % 43.2 % (20.0-50.0); MEAN CORPUSCULAR HEMOGLOBIN 32.5 pg (28.0-32.0); MEAN CORPUSCULAR VOLUME 92.6 fL (80.0-94.0); MEAN PLATELET VOLUME 9.6 fl (7.4-10.4); MONOCYTES % 10.1 % (2.0-8.0); NEUTROPHILS % 43.6 % (40.0-76.0); PLATELET 209 x1000/uL (130-400); RED BLOOD CELL COUNT 4.42 mill/uL (4.7-6.1); RED CELL DISTRIBUTION WIDTH 12.7 % (11.6-14.6)
[2022-05-09 07:24] LABS: HDL CHOLESTEROL 52 mg/dL (40-59); LDL CHOLESTEROL 58 mg/dL (5-100)
[2022-05-11 09:10] LABS: FOLICLE STIMULATING HORMONE 9.3 mIU/mL (1.5-12.4); LUTEINIZING HORMONE 2.2 mIU/mL (1.7-8.6); PROLACTIN 14.5 ng/mL (4.0-15.2)
== END | disposition home or self-care (01) ==
LOC: LAB 06:38
PROVIDERS: ATTEND Internal Medicine Endocrinology, Diabetes & Metabolism
DX: E78.5 Hyperlipidemia, unspecified (principal); R73.9 Hyperglycemia, unspecified
CPT/HCPCS: 36415; 80053; 80061; 83001; 83002; 83036; 84146; 84402; 84403; 85025

== ENCOUNTER → 2022-05-16 | Outpatient (CLI) | payer BC | END | disposition home or self-care (01) | LOC: RAD 07:14 | PROVIDERS: ATTEND Internal Medicine Endocrinology, Diabetes & Metabolism | DX: M81.0 Age-related osteoporosis without current pathological fracture (principal); M85.9 Disorder of bone density and structure, unspecified; E29.1 Testicular hypofunction | CPT/HCPCS: 77080 ==

== ENCOUNTER → 2022-10-17 | Outpatient (CLI) | payer BC | END | disposition home or self-care (01) | LOC: CARD 07:36 | PROVIDERS: ATTEND Specialist | DX: I08.8 Other rheumatic multiple valve diseases (principal); R00.1 Bradycardia, unspecified; I25.10 Atherosclerotic heart disease of native coronary artery without angina pectoris | CPT/HCPCS: 93306 ==

== ENCOUNTER → 2022-11-27 | Outpatient (CLI) | payer BC ==
[2022-11-27 07:55] LABS: BASOPHILS % 0.5 % (0.0-2.0); EOSINOPHILS % 1.6 % (0.0-5.0); HEMATOCRIT. 42.7 % (42.0-52.0); HEMOGLOBIN. 14.6 g/dL (14.0-18.0); LYMPHOCYTES % 48.1 % (20.0-50.0); MEAN CORPUSCULAR HEMOGLOBIN 31.7 pg (28.0-32.0); MEAN CORPUSCULAR HGB CONC 34.2 g/dL (31.0-37.0); MEAN CORPUSCULAR VOLUME 92.6 fL (80.0-94.0); MEAN PLATELET VOLUME 9.1 fl (7.4-10.4); MONOCYTES % 7.7 % (2.0-8.0); NEUTROPHILS % 42.1 % (40.0-76.0); PLATELET 196 x1000/uL (130-400); RED CELL DISTRIBUTION WIDTH 12.8 % (11.6-14.6); WHITE BLOOD COUNT 7.9 x1000/uL (4.5-11.0)
[2022-11-27 10:45] LABS: CHLORIDE 104 mEq/L (98-107); INDEX HEMOLYSI 1 (1-3); INDEX ICTERIC 1 (1-4); INDEX LIPEMIC 1 (1-3); POTASSIUM 4.2 mEq/L (3.5-5.1); SODIUM 138 mEq/L (136-145)
[2022-11-27 11:18] LABS: ALANINE AMINOTRANSFERASE 63 IU/L (13-61); ALBUMIN 4.3 g/dL (3.4-5.0); ASPARTATE AMINOTRANSFERASE 41 IU/L (15-37); CALCIUM 9.5 mg/dL (8.5-10.1); CARBON DIOXIDE 28 mEq/L (21-32); CHOLESTEROL 117 mg/dL (<200); GLUCOSE 117 mg/dL (70-105); HDL CHOLESTEROL 60 mg/dL (40-59); LDL CHOLESTEROL 51 mg/dL (5-100); PROTEIN TOTAL 7.9 g/dL (6.0-8.3); T4 FREE 1.04 ng/dL (0.76-1.46); THYROID STIMULATING HORMONE 0.94 uIU/mL (0.36-3.74); TRIGLYCERIDE 111 mg/dL (0-150); UREA NITROGEN BLOOD 13 mg/dL (7-21)
[2022-11-28 09:07] LABS: FOLICLE STIMULATING HORMONE 8.1 mIU/mL (1.5-12.4); LUTEINIZING HORMONE 2.1 mIU/mL (1.7-8.6); PROLACTIN 15.4 ng/mL (4.0-15.2)
== END | disposition home or self-care (01) ==
LOC: LAB 07:27
PROVIDERS: ATTEND Internal Medicine Endocrinology, Diabetes & Metabolism
DX: E78.5 Hyperlipidemia, unspecified (principal); R73.9 Hyperglycemia, unspecified; R37 Sexual dysfunction, unspecified
CPT/HCPCS: 36415; 80053; 80061; 83001; 83002; 83036; 84146; 84402; 84403; 84439; 84443; 85025

== ENCOUNTER → 2022-12-06 | Outpatient (CLI) | payer BC | END | disposition home or self-care (01) | LOC: US 10:29 | PROVIDERS: ATTEND Internal Medicine Endocrinology, Diabetes & Metabolism | DX: K76.0 Fatty (change of) liver, not elsewhere classified (principal); K80.20 Calculus of gallbladder without cholecystitis without obstruction; N28.1 Cyst of kidney, acquired; R94.5 Abnormal results of liver function studies | CPT/HCPCS: 76700 ==

== ENCOUNTER → 2023-03-28 | Outpatient (CLI) | payer BC ==
[2023-03-29 08:12] LABS: PROSTATE SPECIFIC AG TOTAL 0.3 ng/mL (0.0-4.0)
== END | disposition home or self-care (01) ==
LOC: LAB 07:44
PROVIDERS: ATTEND Urology
DX: E29.1 Testicular hypofunction (principal)
CPT/HCPCS: 84153; 84403

== ENCOUNTER → 2023-04-04 | Outpatient (CLI) | payer BC ==
[2023-04-04 07:52] LABS: CLARITY URINE CLEAR (CLEAR); COLOR URINE YELLOW (YELLOW); GLUCOSE URINE NEGATIVE (NEGATIVE); KETONES URINE NEGATIVE (NEGATIVE); LEUKOCYTE ESTERASE URINE NEGATIVE (NEGATIVE); NITRITE URINE NEGATIVE (NEGATIVE); OCCULT BLOOD URINE NEGATIVE (NEGATIVE); PH URINE 5.5 (4.5-8.0); PROTEIN URINE NEGATIVE (NEGATIVE); SPECIFIC GRAVITY URINE 1.015 (1.005-1.030)
[2023-04-04 07:54] LABS: BASOPHILS % 0.6 % (0.0-2.0); EOSINOPHILS % 1.8 % (0.0-5.0); HEMATOCRIT. 41.4 % (42.0-52.0); HEMOGLOBIN. 14.5 g/dL (14.0-18.0); LYMPHOCYTES % 47.1 % (20.0-50.0); MEAN CORPUSCULAR HEMOGLOBIN 32.2 pg (28.0-32.0); MEAN CORPUSCULAR HGB CONC 35.1 g/dL (31.0-37.0); MEAN CORPUSCULAR VOLUME 91.6 fL (80.0-94.0); MEAN PLATELET VOLUME 9.5 fl (7.4-10.4); MONOCYTES % 7.8 % (2.0-8.0); NEUTROPHILS % 42.7 % (40.0-76.0); PLATELET 187 x1000/uL (130-400); RED BLOOD CELL COUNT 4.52 mill/uL (4.7-6.1); RED CELL DISTRIBUTION WIDTH 12.7 % (11.6-14.6); WHITE BLOOD COUNT 7.9 x1000/uL (4.5-11.0)
[2023-04-04 08:09] LABS: ALANINE AMINOTRANSFERASE 72 IU/L (10-49); ALBUMIN 4.5 g/dL (3.2-4.8); ASPARTATE AMINOTRANSFERASE 45 IU/L (<34); BILIRUBIN TOTAL 0.8 mg/dL (0.1-1.0); CALCIUM 9.1 mg/dL (8.7-10.4); CARBON DIOXIDE 28 mEq/L (21-32); CHLORIDE 106 mEq/L (98-107); CHOLESTEROL 111 mg/dL (<200); GLUCOSE 120 mg/dL (70-105); HDL CHOLESTEROL 52 mg/dL (>55); LDL CHOLESTEROL 52 mg/dL (5-100); POTASSIUM 4.1 mEq/L (3.5-5.1); PROTEIN TOTAL 6.8 g/dL (6.0-8.3); SODIUM 141 mEq/L (136-145); T4 FREE 1.03 ng/dL (0.89-1.76); THYROID STIMULATING HORMONE 0.74 uIU/mL (0.55-4.78); TRIGLYCERIDE 103 mg/dL (0-150); UREA NITROGEN BLOOD 16 mg/dL (9-23)
== END | disposition home or self-care (01) ==
LOC: LAB 07:21
PROVIDERS: ATTEND Internal Medicine Endocrinology, Diabetes & Metabolism
DX: E78.5 Hyperlipidemia, unspecified (principal); E55.9 Vitamin D deficiency, unspecified; R73.9 Hyperglycemia, unspecified
CPT/HCPCS: 36415; 80053; 80061; 81003; 82306; 83036; 84439; 84443; 85025

== ENCOUNTER → 2023-04-10 | Outpatient (CLI) | payer BC ==
[~2023-04-10] MED LIST changes: +IOHEXOL-350 100 ML BOTTLE ONE
== END | disposition home or self-care (01) ==
LOC: CT 07:17
PROVIDERS: ATTEND Specialist
DX: I51.7 Cardiomegaly (principal); R06.02 Shortness of breath; K80.20 Calculus of gallbladder without cholecystitis without obstruction; Z98.890 Other specified postprocedural states
CPT/HCPCS: 71275; Q9967

== ENCOUNTER → 2023-04-10 | Outpatient (CLI) | payer BC | END | disposition home or self-care (01) | LOC: CT 07:25 | PROVIDERS: ATTEND Internal Medicine Endocrinology, Diabetes & Metabolism | DX: I71.21 Aneurysm of the ascending aorta, without rupture (principal); Z98.890 Other specified postprocedural states | CPT/HCPCS: 70498; Q9967 ==

== ENCOUNTER → 2023-07-23 | Outpatient (CLI) | payer BC ==
[~2023-07-23] MED LIST changes: -IOHEXOL-350 100 ML BOTTLE ONE
[2023-07-23 08:14] LABS: BASOPHILS % 0.6 % (0.0-2.0); EOSINOPHILS % 1.9 % (0.0-5.0); HEMATOCRIT. 40.8 % (42.0-52.0); HEMOGLOBIN. 14.1 g/dL (14.0-18.0); LYMPHOCYTES % 44.5 % (20.0-50.0); MEAN CORPUSCULAR HEMOGLOBIN 32.6 pg (28.0-32.0); MEAN CORPUSCULAR HGB CONC 34.6 g/dL (31.0-37.0); MEAN CORPUSCULAR VOLUME 94.2 fL (80.0-94.0); MEAN PLATELET VOLUME 9.5 fl (7.4-10.4); MONOCYTES % 9.1 % (2.0-8.0); NEUTROPHILS % 43.9 % (40.0-76.0); PLATELET 186 x1000/uL (130-400); RED BLOOD CELL COUNT 4.33 mill/uL (4.7-6.1); RED CELL DISTRIBUTION WIDTH 12.9 % (11.6-14.6); WHITE BLOOD COUNT 7.3 x1000/uL (4.5-11.0)
[2023-07-24 09:10] LABS: % FREE PSA 43.3 % (.); PROSTATE SPECIFIC AG TOTAL 0.3 ng/mL (0.0-4.0); PSA FREE 0.13 ng/mL
== END | disposition home or self-care (01) ==
LOC: LAB 07:47
PROVIDERS: ATTEND Urology
DX: N40.0 Benign prostatic hyperplasia without lower urinary tract symptoms (principal); E29.1 Testicular hypofunction
CPT/HCPCS: 36415; 84153; 84154; 84403; 85025

== ENCOUNTER → 2023-07-31 | Outpatient (CLI) | payer BC | END | disposition home or self-care (01) | LOC: MAMMO 07:26 | PROVIDERS: ATTEND Internal Medicine Endocrinology, Diabetes & Metabolism | DX: G00-G99 Diseases of the nervous system (principal) | CPT/HCPCS: 77080 ==

== ENCOUNTER → 2024-03-11 | Outpatient (CLI) | payer BC ==
[2024-03-11 07:58] LABS: CHLORIDE 107 mEq/L (98-107); POTASSIUM 4.2 mEq/L (3.5-5.1); SODIUM 143 mEq/L (136-145)
[2024-03-11 07:59] LABS: BASOPHILS % 0.5 % (0.0-2.0); CALCIUM 9.5 mg/dL (8.7-10.4); CARBON DIOXIDE 29 mEq/L (21-32); EOSINOPHILS % 3.6 % (0.0-5.0); HEMATOCRIT. 40.2 % (42.0-52.0); LYMPHOCYTES % 42.1 % (20.0-50.0); MEAN CORPUSCULAR HEMOGLOBIN 32.6 pg (28.0-32.0); MEAN CORPUSCULAR HGB CONC 34.8 g/dL (31.0-37.0); MEAN CORPUSCULAR VOLUME 93.8 fL (80.0-94.0); MEAN PLATELET VOLUME 9.5 fl (7.4-10.4); MONOCYTES % 13.9 % (2.0-8.0); NEUTROPHILS % 39.9 % (40.0-76.0); PLATELET 177 x1000/uL (130-400); RED BLOOD CELL COUNT 4.28 mill/uL (4.7-6.1); RED CELL DISTRIBUTION WIDTH 12.9 % (11.6-14.6); WHITE BLOOD COUNT 6.3 x1000/uL (4.5-11.0)
[2024-03-11 08:04] LABS: GLUCOSE 122 mg/dL (70-105); TRIGLYCERIDE 97 mg/dL (0-150); UREA NITROGEN BLOOD 15 mg/dL (9-23)
[2024-03-11 08:05] LABS: LDL CHOLESTEROL 39 mg/dL (5-100)
[2024-03-11 08:06] LABS: ALANINE AMINOTRANSFERASE 45 IU/L (10-49); ALBUMIN 4.6 g/dL (3.2-4.8); ASPARTATE AMINOTRANSFERASE 32 IU/L (<34); CHOLESTEROL 112 mg/dL (<200); HDL CHOLESTEROL 49 mg/dL (>55); T4 FREE 1.16 ng/dL (0.89-1.76)
[2024-03-11 08:07] LABS: BILIRUBIN TOTAL 0.8 mg/dL (0.1-1.0); PROTEIN TOTAL 6.9 g/dL (6.0-8.3); THYROID STIMULATING HORMONE 1.48 uIU/mL (0.55-4.78)
== END | disposition home or self-care (01) ==
LOC: LAB 07:15
PROVIDERS: ATTEND Internal Medicine Endocrinology, Diabetes & Metabolism
DX: E78.5 Hyperlipidemia, unspecified (principal); R73.9 Hyperglycemia, unspecified; E55.9 Vitamin D deficiency, unspecified
CPT/HCPCS: 36415; 80053; 80061; 82306; 83036; 84439; 84443; 85025

== ENCOUNTER → 2024-04-09 | Outpatient (CLI) | payer BC | END | disposition home or self-care (01) | LOC: US 07:36 | PROVIDERS: ATTEND Internal Medicine Endocrinology, Diabetes & Metabolism | DX: R19.04 Left lower quadrant abdominal swelling, mass and lump (principal) | CPT/HCPCS: 76857 ==

== ENCOUNTER → 2024-04-15 | Outpatient (CLI) | payer BC ==
[2024-04-15 07:36] LABS: BASOPHILS % 0.7 % (0.0-2.0); EOSINOPHILS % 1.9 % (0.0-5.0); HEMATOCRIT. 41.1 % (42.0-52.0); HEMOGLOBIN. 14.3 g/dL (14.0-18.0); LYMPHOCYTES % 43.7 % (20.0-50.0); MEAN CORPUSCULAR HEMOGLOBIN 32.6 pg (28.0-32.0); MEAN CORPUSCULAR HGB CONC 34.9 g/dL (31.0-37.0); MEAN CORPUSCULAR VOLUME 93.6 fL (80.0-94.0); MEAN PLATELET VOLUME 9.8 fl (7.4-10.4); MONOCYTES % 8.8 % (2.0-8.0); NEUTROPHILS % 44.9 % (40.0-76.0); PLATELET 195 x1000/uL (130-400); RED BLOOD CELL COUNT 4.39 mill/uL (4.7-6.1); RED CELL DISTRIBUTION WIDTH 12.7 % (11.6-14.6); WHITE BLOOD COUNT 8.8 x1000/uL (4.5-11.0)
[2024-04-15 07:48] LABS: CHLORIDE 103 mEq/L (98-107); POTASSIUM 4.4 mEq/L (3.5-5.1); SODIUM 141 mEq/L (136-145)
[2024-04-15 07:49] LABS: CALCIUM 9.7 mg/dL (8.7-10.4); CARBON DIOXIDE 29 mEq/L (21-32)
[2024-04-15 07:54] LABS: GLUCOSE 128 mg/dL (70-105); TRIGLYCERIDE 75 mg/dL (0-150); UREA NITROGEN BLOOD 12 mg/dL (9-23)
[2024-04-15 07:55] LABS: LDL CHOLESTEROL 46 mg/dL (5-100)
[2024-04-15 07:56] LABS: ALANINE AMINOTRANSFERASE 76 IU/L (10-49); ALBUMIN 4.6 g/dL (3.2-4.8); ASPARTATE AMINOTRANSFERASE 50 IU/L (<34); BILIRUBIN TOTAL 0.8 mg/dL (0.1-1.0); CHOLESTEROL 119 mg/dL (<200); CREATINE KINASE 282 IU/L (46-171); HDL CHOLESTEROL 48 mg/dL (>55); PROTEIN TOTAL 7.5 g/dL (6.0-8.3)
[2024-04-15 07:58] LABS: FOLIC ACID (FOLATE) SERUM 13.05 ng/mL (>5.38); VITAMIN B12 SERUM 1345 pg/mL (211-911)
[2024-04-15 08:00] LABS: T4 FREE 1.17 ng/dL (0.89-1.76); THYROID STIMULATING HORMONE 1.22 uIU/mL (0.55-4.78)
[2024-04-15 10:49] LABS: ERYTHROCYTE SEDIMENTATION RATE 4 mm/hr (0-20)
[2024-04-16 09:07] LABS: FOLICLE STIMULATING HORMONE 10.3 mIU/mL (1.5-12.4); LUTEINIZING HORMONE 6.1 mIU/mL (1.7-8.6); VITAMIN D 25-OH 36.8 ng/mL (30.0-100.0)
[2024-04-16 13:11] LABS: ANTI-NUCLEAR ANTIBODIES DIRECT Negative (Negative)
== END | disposition home or self-care (01) ==
LOC: LAB 06:28
PROVIDERS: ATTEND Internal Medicine Endocrinology, Diabetes & Metabolism
DX: R73.9 Hyperglycemia, unspecified (principal); E78.00 Pure hypercholesterolemia, unspecified; E55.9 Vitamin D deficiency, unspecified
CPT/HCPCS: 36415; 80053; 80061; 82306; 82550; 82607; 82746; 83001; 83002; 83036; 83921; 84403; 84439; 84443; 85025; 85651; 86038

== ENCOUNTER → 2024-06-17 | Outpatient (CLI) | payer BC | END | disposition home or self-care (01) | LOC: MRI 07:37 | PROVIDERS: ATTEND Internal Medicine Endocrinology, Diabetes & Metabolism | DX: M47.817 Spondylosis without myelopathy or radiculopathy, lumbosacral region (principal); M48.07 Spinal stenosis, lumbosacral region; M48.02 Spinal stenosis, cervical region; M50.223 Other cervical disc displacement at C6-C7 level; M50.222 Other cervical disc displacement at C5-C6 level; M51.370 Other intervertebral disc degeneration, lumbosacral region with discogenic back pain only; M51.27 Other intervertebral disc displacement, lumbosacral region; J32.4 Chronic pansinusitis; J32.3 Chronic sphenoidal sinusitis; J32.2 Chronic ethmoidal sinusitis; J32.0 Chronic maxillary sinusitis; I67.82 Cerebral ischemia; R90.82 White matter disease, unspecified; M48.8X2 Other specified spondylopathies, cervical region; R29.890 Loss of height; R51.9 Headache, unspecified | CPT/HCPCS: 70551; 72141; 72148 ==

== ENCOUNTER → 2024-07-21 | Outpatient (CLI) | payer BC ==
[~2024-07-21] MED LIST changes: +REGADENOSON 0.4 MG/5 ML IV NR; +REGADENOSON 0.4 MG/5 ML IV ONE
== END | disposition home or self-care (01) ==
LOC: RAD 07:38
PROVIDERS: ATTEND Specialist
DX: R07.9 Chest pain, unspecified (principal); Z95.1 Presence of aortocoronary bypass graft
CPT/HCPCS: 78452; 93017; J2785; A9500

== ENCOUNTER → 2024-10-12 | Outpatient (CLI) | payer BC ==
[~2024-10-12] MED LIST changes: -REGADENOSON 0.4 MG/5 ML IV NR; -REGADENOSON 0.4 MG/5 ML IV ONE
[2024-10-12 07:18] LABS: BASOPHILS % 0.7 % (0.0-2.0); EOSINOPHILS % 1.9 % (0.0-5.0); HEMATOCRIT. 38.6 % (42.0-52.0); HEMOGLOBIN. 13.5 g/dL (14.0-18.0); LYMPHOCYTES % 35.3 % (20.0-50.0); MEAN PLATELET VOLUME 9.8 fl (7.4-10.4); MONOCYTES % 9.7 % (2.0-8.0); NEUTROPHILS % 52.4 % (40.0-76.0); PLATELET 162 x1000/uL (130-400); RED BLOOD CELL COUNT 4.19 mill/uL (4.7-6.1); RED CELL DISTRIBUTION WIDTH 13.0 % (11.6-14.6)
[2024-10-12 07:29] LABS: CREATININE 1.1 mg/dL (0.6-1.3); TRIGLYCERIDE 163 mg/dL (0-150); UREA NITROGEN BLOOD 12 mg/dL (9-23)
[2024-10-12 07:30] LABS: C REACTIVE PROTEIN HIGH SENS 0.46 mg/l (<1.00); LACTATE DEHYDROGENASE 227 IU/L (120-246); LDL CHOLESTEROL 49 mg/dL (5-100)
[2024-10-12 07:31] LABS: ASPARTATE AMINOTRANSFERASE 54 IU/L (<34); BILIRUBIN TOTAL 1.1 mg/dL (0.1-1.0); PROTEIN TOTAL 7.0 g/dL (6.0-8.3); T4 FREE 1.18 ng/dL (0.89-1.76)
[2024-10-13 06:12] LABS: % FREE PSA 50.0 % (.); FOLICLE STIMULATING HORMONE 10.1 mIU/mL (1.5-12.4); LUTEINIZING HORMONE 3.7 mIU/mL (1.7-8.6); PROLACTIN 14.6 ng/mL (3.6-25.2); PROSTATE SPECIFIC AG TOTAL 0.2 ng/mL (0.0-4.0); PSA FREE 0.10 ng/mL; VITAMIN D 25-OH 28.4 ng/mL (30.0-100.0)
== END | disposition home or self-care (01) ==
LOC: LAB 06:08
PROVIDERS: ATTEND Internal Medicine Endocrinology, Diabetes & Metabolism
DX: N40.0 Benign prostatic hyperplasia without lower urinary tract symptoms (principal); I10 Essential (primary) hypertension; E78.00 Pure hypercholesterolemia, unspecified; R73.9 Hyperglycemia, unspecified; E55.9 Vitamin D deficiency, unspecified
CPT/HCPCS: 36415; 80053; 80061; 82306; 82550; 83001; 83002; 83036; 83615; 84146; 84153; 84154; 84402; 84403; 84439; 84443; 85025; 86141

== ENCOUNTER → 2024-11-04 | Outpatient (CLI) | payer OTHER | END | disposition home or self-care (01) | LOC: MRI 08:48 | PROVIDERS: ATTEND Family Medicine Adult Medicine | DX: M47.812 Spondylosis without myelopathy or radiculopathy, cervical region (principal); M48.02 Spinal stenosis, cervical region; M53.83 Other specified dorsopathies, cervicothoracic region; F40.240 Claustrophobia; R06.02 Shortness of breath; M54.2 Cervicalgia | CPT/HCPCS: 72141 ==

== ENCOUNTER → 2024-11-04 | Outpatient (CLI) | payer BC | END | disposition home or self-care (01) | LOC: MRI 08:37 | PROVIDERS: ATTEND Neurological Surgery | DX: M19.011 Primary osteoarthritis, right shoulder (principal); M75.81 Other shoulder lesions, right shoulder; M67.411 Ganglion, right shoulder; M67.911 Unspecified disorder of synovium and tendon, right shoulder; R60.0 Localized edema; M54.2 Cervicalgia | CPT/HCPCS: 73221 ==